=== PATIENT | female | born 1950 | race Hispanic/Latino ===

== ENCOUNTER 2020-07-31 14:28 | Inpatient (IN) | payer OTHER, MEDICARE ==
[~2020-07-31] VITALS: Ht 170.2 cm; Wt 72.6 kg
[2020-07-31 14:50] LABS: BASOPHILS % (AUTO) 0.1 % (0.0-5.0); EOSINOPHILS % (AUTO) 0.1 % (0.0-8.0); HEMATOCRIT 32.7 % (36-48); LYMPHOCYTES % (AUTO) 4.9 % (21.0-51.0); MEAN CORPUSCULAR HEMOGLOBIN 27.5 pg (27.0-33.0); MEAN CORPUSCULAR HGB CONC 33.3 g/dL (32.0-36.0); MEAN CORPUSCULAR VOLUME 82.6 fL (79-99); MONOCYTES % (AUTO) 3.5 % (3.0-13.0); NEUTROPHILS % (AUTO) 90.7 % (40.0-77.0); PLATELET COUNT (AUTO) 139 K/uL (130-400); RED BLOOD CELL COUNT(AUTO) 3.96 MIL/uL (4.00-5.50); RED CELL DISTRIBUTION WIDTH 14.3 % (11.0-15.5); WHITE BLOOD COUNT (AUTO) 13.8 K/uL (4.8-10.8)
[2020-07-31 15:03] LABS: INR 1.2 (0.85-1.15); PROTHROMBIN TIME 12.9 SEC (9.6-11.6)
[2020-07-31 15:04] LABS: PARTIAL THROMBOPLASTIN TIME 28.9 SEC (26.3-35.5)
[2020-07-31 15:05] LABS: CREATININE 0.8 mg/dL (0.5-1.5); POTASSIUM 3.8 mmol/L (3.5-5.1)
[2020-07-31 15:28] LABS: ALBUMIN 1.9 g/dL (3.5-5.0); BILIRUBIN,TOTAL 1.1 mg/dL (0.2-1.0); TOTAL PROTEIN, SERUM 6.8 g/dL (6.0-8.3)
[2020-07-31 15:29] LABS: TROPONIN I 0.86 ng/mL (0.00-0.06)
[2020-07-31] MEDS ORDERED: 0.9% NACL 250ML 250 ML IV ONE (15:29)
[2020-07-31] MEDS ORDERED: AZITHROMYCIN 500MG+NS 250ML 250 ML IV ONE (15:30)
[2020-07-31] MEDS ORDERED: DEXAMETHASONE SOD PHOSPHATE 10MG/ML 1ML VIAL ONE (15:30)
[2020-07-31] MEDS ORDERED: CEFTRIAXONE 2GM VIAL ONE (15:30)
[2020-07-31 15:35] LABS: APPEARANCE,URINE Clear (CLEAR); BILIRUBIN,URINE Negative (NEGATIVE); COLOR,URINE Dark Yellow (YELLOW); GLUCOSE, URINE (UA) >=1000 mg/dL (NEGATIVE); KETONES,URINE >=160 mg/dL (NEGATIVE); LEUKOCYTE ESTERASE ,URINE Negative (NEGATIVE); NITRATE,URINE Negative (NEGATIVE); OCCULT BLOOD,URINE Negative (NEGATIVE); PH,URINE 5.5 (5.0-8.0); PROTEIN,URINE POS 2+ mg/dL (NEGATIVE)
[2020-07-31 16:03] LABS: BACTERIA,URINE Rare /HPF (None Seen); MUCUS,URINE Rare LPF (None Seen); RBC,URINE 0-1 /HPF (0-1); SQUAMOUS EPITHELIAL CELL,UR Few /HPF (0-2); WBC,URINE 0-1 /HPF (0-1)
[2020-07-31 16:08] LABS: ABG BASE EXCESS -3.5 mmol/L (-2.0-3.0); ABG HCO3 18.4 mmol/L (21.0-28.0); ABG OXYGEN SATURATION 97.4 % (95.0-99.0); ABG PCO2 26 mmHg (32-45)
[2020-07-31] MEDS: CEFEPIME HCL 2 GM VIAL IVP SCH ×2 (16:30→23:25)
[2020-07-31] MEDS: DOXYCYCLINE 100MG+NS 250ML 250 ML IV SCH (16:30)
[2020-07-31] MEDS ORDERED: ASPIRIN 81MG CHEW TAB PO SCH (16:30)
[2020-07-31] MEDS ORDERED: VANCOMYCIN PROTOCOL PER PHARMACY IV SCH (16:30)
[2020-07-31] MEDS ORDERED: INSULIN HUMULIN R 100 UNIT/ML 3ML SQ SCH (16:30)
[2020-07-31 16:41] LABS: HEMOGLOBIN A1C 9.4 % (4.0-6.0)
[2020-07-31] MEDS ORDERED: THIAMINE HCL 100 MG/ML 2ML VIAL IVP SCH (16:45)
[2020-07-31] MEDS ORDERED: FOLIC ACID 5 MG/ML VIAL IV SCH (16:45)
[2020-07-31] MEDS ORDERED: CEFEPIME HCL 2 GM VIAL ONE (17:09)
[2020-07-31] MEDS ORDERED: DOXYCYCLINE 100MG+NS 250ML 250 ML IV ONE (17:10)
[2020-07-31] MEDS ORDERED: THIAMINE HCL 100 MG/ML 2ML VIAL ONE (17:47)
[2020-07-31] MEDS ORDERED: FOLIC ACID 5 MG/ML VIAL ONE (17:49)
[2020-07-31] MEDS: VANCOMYCIN 1G/250ML KIT 250 ML IV SCH (18:00)
[2020-07-31] MEDS ORDERED: PHARMACY COMMUNICATION**REMDESIVIR ORDER MISC SCH (19:15)
[2020-07-31 19:34] LABS: TROPONIN I 1.17 ng/mL (0.00-0.06)
[2020-07-31] MEDS ORDERED: COMPOUND IV REFRIGERATED 1 EACH IVSOLN MISC PRN (19:45)
[2020-07-31] MEDS ORDERED: REMDESIVIR (EUA) 520 200 MG in 0.9% NACL 250ML 250 ML IV SCH (20:00)
[2020-07-31 20:20] VITALS: BP 156/66
[2020-07-31] MEDS: FAMOTIDINE 20MG VIAL IV SCH (23:25)
[2020-07-31] MEDS: ENOXAPARIN SODIUM 40 MG/0.4 ML SYRINGE SQ SCH (23:28)
[2020-07-31] MEDS: INSULIN HUMULIN R 100 UNIT/ML 3ML SQ SCH (23:40)
[2020-07-31 23:55] VITALS: BP 140/79
[2020-08-01 04:01] VITALS: BP 143/81
[2020-08-01 05:11] LABS: MAGNESIUM 1.6 mg/dL (1.80-2.40)
[2020-08-01] MEDS: DOXYCYCLINE 100MG+NS 250ML 250 ML IV SCH ×2 (05:20→15:31)
[2020-08-01] MEDS ORDERED: MAGNESIUM 2GM PREMIX 50ML 50 ML IV SCH (05:30)
[2020-08-01 05:39] LABS: CRP QUANTITATIVE 289.7 mg/L (0.00-9.0)
[2020-08-01 05:40] LABS: BASOPHILS % (AUTO) 0.1 % (0.0-5.0); HEMATOCRIT 32.9 % (36-48); LYMPHOCYTES % (AUTO) 5.7 % (21.0-51.0); MEAN CORPUSCULAR HEMOGLOBIN 27.2 pg (27.0-33.0); MEAN CORPUSCULAR HGB CONC 33.1 g/dL (32.0-36.0); MONOCYTES % (AUTO) 3.7 % (3.0-13.0); NEUTROPHILS % (AUTO) 89.8 % (40.0-77.0); PLATELET COUNT (AUTO) 119 K/uL (130-400); RED BLOOD CELL COUNT(AUTO) 4.01 MIL/uL (4.00-5.50); RED CELL DISTRIBUTION WIDTH 14.4 % (11.0-15.5); WHITE BLOOD COUNT (AUTO) 10.5 K/uL (4.8-10.8)
[2020-08-01] MEDS ORDERED: DILT120C92 PO (05:55)
[2020-08-01] MEDS ORDERED: CIDE500T PO (05:55)
[2020-08-01] MEDS ORDERED: ATOR10 PO (05:55)
[2020-08-01] MEDS ORDERED: FOLI0.8C PO (05:55)
[2020-08-01] MEDS ORDERED: AEC81 PO (05:55)
[2020-08-01] MEDS ORDERED: DAPA5TAB PO (05:55)
[2020-08-01] MEDS ORDERED: LINA1TAB5 PO (05:55)
[2020-08-01] MEDS: REMDESIVIR LABS MISC SCH (06:00)
[2020-08-01] MEDS: INSULIN HUMULIN R 100 UNIT/ML 3ML SQ SCH ×4 (06:07→21:40)
[2020-08-01 06:17] LABS: ALBUMIN 1.7 g/dL (3.5-5.0); BILIRUBIN,TOTAL 0.6 mg/dL (0.2-1.0); CREATININE 0.8 mg/dL (0.5-1.5); POTASSIUM 3.8 mmol/L (3.5-5.1); TOTAL PROTEIN, SERUM 6.4 g/dL (6.0-8.3)
[2020-08-01] MEDS: VANCOMYCIN 1G/250ML KIT 250 ML IV SCH ×2 (08:13→21:12)
[2020-08-01 08:15] VITALS: BP 145/74
[2020-08-01] MEDS: CEFEPIME HCL 2 GM VIAL IVP SCH ×3 (08:15→23:57)
[2020-08-01] MEDS: FAMOTIDINE 20MG VIAL IV SCH ×2 (08:15→21:12)
[2020-08-01] MEDS: DEXAMETHASONE SOD PHOSPHATE 4 MG/ML 1ML VIAL IVP SCH (08:16)
[2020-08-01] MEDS: THIAMINE HCL 100 MG/ML 2ML VIAL IVP SCH (08:18)
[2020-08-01] MEDS: ASPIRIN 81MG CHEW TAB PO SCH (08:19)
[2020-08-01] MEDS: ENOXAPARIN SODIUM 40 MG/0.4 ML SYRINGE SQ SCH ×2 (08:19→21:13)
[2020-08-01] MEDS: BARICITINIB (EUA) 2 MG TABLET PO SCH (10:07)
[2020-08-01] MEDS: FOLIC ACID 5 MG/ML VIAL IV SCH (10:17)
[2020-08-01] MEDS ORDERED: MAGNESIUM 2GM PREMIX 50ML 50 ML IV PRN (10:30)
[2020-08-01 12:26] VITALS: BP 137/70
[2020-08-01 16:14] VITALS: BP 142/73
[2020-08-01] MEDS: REMDESIVIR (EUA) 520 100 MG in 0.9% NACL 250ML 250 ML IV SCH (19:42)
[2020-08-01 20:12] VITALS: BP 144/77
[2020-08-01] MEDS: INSULIN GLARGINE 100 UNITS/ML 10 ML VIAL SQ SCH (21:39)
[2020-08-01 23:54] VITALS: BP 170/86
[2020-08-02 04:14] VITALS: BP 161/77
[2020-08-02] MEDS ORDERED: GUAIFENESIN-CODEINE 5 ML SYRUP PO PRN (04:45)
[2020-08-02] MEDS: DOXYCYCLINE 100MG+NS 250ML 250 ML IV SCH ×2 (05:03→16:14)
[2020-08-02 05:04] LABS: BASOPHILS % (AUTO) 0.1 % (0.0-5.0); HEMATOCRIT 36.5 % (36-48); LYMPHOCYTES % (AUTO) 5.4 % (21.0-51.0); MEAN CORPUSCULAR HEMOGLOBIN 26.9 pg (27.0-33.0); MEAN CORPUSCULAR HGB CONC 32.9 g/dL (32.0-36.0); MEAN CORPUSCULAR VOLUME 81.8 fL (79-99); MONOCYTES % (AUTO) 2.8 % (3.0-13.0); NEUTROPHILS % (AUTO) 90.7 % (40.0-77.0); PLATELET COUNT (AUTO) 190 K/uL (130-400); RED BLOOD CELL COUNT(AUTO) 4.46 MIL/uL (4.00-5.50); RED CELL DISTRIBUTION WIDTH 14.6 % (11.0-15.5); WHITE BLOOD COUNT (AUTO) 18.4 K/uL (4.8-10.8)
[2020-08-02 05:43] LABS: BILIRUBIN,TOTAL 0.7 mg/dL (0.2-1.0); CREATININE 0.8 mg/dL (0.5-1.5); CRP QUANTITATIVE 164.3 mg/L (0.00-9.0); POTASSIUM 3.6 mmol/L (3.5-5.1); TOTAL PROTEIN, SERUM 7.2 g/dL (6.0-8.3)
[2020-08-02 08:00] VITALS: BP 162/72
[2020-08-02] MEDS: INSULIN HUMULIN R 100 UNIT/ML 3ML SQ SCH ×4 (08:00→22:45)
[2020-08-02] MEDS: VANCOMYCIN 1G/250ML KIT 250 ML IV SCH ×2 (08:59→22:33)
[2020-08-02] MEDS: FOLIC ACID 5 MG/ML VIAL IV SCH (09:00)
[2020-08-02] MEDS: ENOXAPARIN SODIUM 40 MG/0.4 ML SYRINGE SQ SCH (09:00)
[2020-08-02] MEDS: DEXAMETHASONE SOD PHOSPHATE 4 MG/ML 1ML VIAL IVP SCH (09:00)
[2020-08-02] MEDS ORDERED: COMPOUND IV REFRIGERATED 1 EACH IVSOLN MISC PRN (09:00)
[2020-08-02] MEDS ORDERED: ASPIRIN 81 MG EC TAB PO SCH (09:00)
[2020-08-02] MEDS: BARICITINIB (EUA) 2 MG TABLET PO SCH (09:00)
[2020-08-02] MEDS: THIAMINE HCL 100 MG/ML 2ML VIAL IVP SCH (09:00)
[2020-08-02] MEDS: FAMOTIDINE 20MG VIAL IV SCH ×2 (09:01→22:29)
[2020-08-02] MEDS: DILTIAZEM 120MG SR CAP PO SCH (09:01)
[2020-08-02] MEDS: CEFEPIME HCL 2 GM VIAL IVP SCH ×3 (09:01→22:34)
[2020-08-02] MEDS: ASPIRIN 81MG CHEW TAB PO SCH (09:01)
[2020-08-02 12:00] VITALS: BP 137/70
[2020-08-02 16:00] VITALS: BP 116/72
[2020-08-02] MEDS: REMDESIVIR (EUA) 520 100 MG in 0.9% NACL 250ML 250 ML IV SCH (20:51)
[2020-08-02 20:55] VITALS: BP 140/70
[2020-08-02] MEDS: ENOXAPARIN SODIUM 80 MG/0.8 ML SQ SCH (22:33)
[2020-08-02] MEDS: INSULIN GLARGINE 100 UNITS/ML 10 ML VIAL SQ SCH (22:45)
[2020-08-02 23:49] VITALS: BP 141/80
[2020-08-03] VITALS (30 sets, daily range): BP systolic 28–160; BP diastolic 23–80
[2020-08-03] MEDS: NITROGLYCERIN 1GM OINT 1 INCH/1GM TD SCH ×3 (00:13→16:56)
[2020-08-03 01:22] LABS: TROPONIN I 0.53 ng/mL (0.00-0.06)
[2020-08-03] MEDS: DOXYCYCLINE 100MG+NS 250ML 250 ML IV SCH ×2 (04:30→16:56)
[2020-08-03] MEDS: INSULIN HUMULIN R 100 UNIT/ML 3ML SQ SCH ×4 (04:30→21:47)
[2020-08-03 04:58] LABS: BASOPHILS % (AUTO) 0.1 % (0.0-5.0); HEMATOCRIT 37.9 % (36-48); MEAN CORPUSCULAR HEMOGLOBIN 26.8 pg (27.0-33.0); MEAN CORPUSCULAR HGB CONC 32.2 g/dL (32.0-36.0); MEAN CORPUSCULAR VOLUME 83.3 fL (79-99); MONOCYTES % (AUTO) 2.9 % (3.0-13.0); NEUTROPHILS % (AUTO) 90.7 % (40.0-77.0); PLATELET COUNT (AUTO) 163 K/uL (130-400); RED BLOOD CELL COUNT(AUTO) 4.55 MIL/uL (4.00-5.50); WHITE BLOOD COUNT (AUTO) 17.8 K/uL (4.8-10.8)
[2020-08-03 05:15] LABS: ALBUMIN 1.8 g/dL (3.5-5.0); BILIRUBIN,TOTAL 0.9 mg/dL (0.2-1.0); CREATININE 0.7 mg/dL (0.5-1.5); POTASSIUM 3.5 mmol/L (3.5-5.1); TOTAL PROTEIN, SERUM 6.5 g/dL (6.0-8.3)
[2020-08-03] MEDS: REMDESIVIR LABS MISC SCH (06:00)
[2020-08-03] MEDS ORDERED: LORAZEPAM 2 MG/ML 1 ML VIAL IVP SCH ×2 (07:04→08:45)
[2020-08-03] MEDS: CEFEPIME HCL 2 GM VIAL IVP SCH ×2 (08:30→16:56)
[2020-08-03 08:41] LABS: TROPONIN I 4.48 ng/mL (0.00-0.06)
[2020-08-03] MEDS ORDERED: DEXMEDETOMIDINE HCL 400 MCG in 0.9%NACL 100ML 100 ML IV SCH (08:45)
[2020-08-03] MEDS ORDERED: OLANZAPINE 10MG/ML 1ML VIAL IM SCH ×2 (08:45→09:44)
[2020-08-03] MEDS ORDERED: VANCOMYCIN 1G 2 GM in 0.9% NACL 500ML IV.SOLN 500 ML IV SCH (09:00)
[2020-08-03] MEDS: DILTIAZEM 120MG SR CAP PO SCH (09:00)
[2020-08-03] MEDS ORDERED: CLOPIDOGREL 300MG TAB PO SCH ×2 (09:00→13:45)
[2020-08-03] MEDS: BARICITINIB (EUA) 2 MG TABLET PO SCH (09:00)
[2020-08-03] MEDS: DEXAMETHASONE SOD PHOSPHATE 4 MG/ML 1ML VIAL IVP SCH (09:00)
[2020-08-03] MEDS: ENOXAPARIN SODIUM 80 MG/0.8 ML SQ SCH ×2 (09:00→21:58)
[2020-08-03] MEDS: THIAMINE HCL 100 MG/ML 2ML VIAL IVP SCH (09:00)
[2020-08-03] MEDS: ASPIRIN 81MG CHEW TAB PO SCH (09:00)
[2020-08-03] MEDS: FAMOTIDINE 20MG VIAL IV SCH ×2 (09:00→21:58)
[2020-08-03] MEDS ORDERED: FENTANYL 2500MCG+NS 250ML 0 ML IV ONE (09:16)
[2020-08-03] MEDS ORDERED: ALTEPLASE 100MG 1 VIAL IV PRN (09:30)
[2020-08-03] MEDS ORDERED: MIDAZOLAM HCL 50 MG in 0.9%NACL 50ML 50 ML IV SCH (09:45)
[2020-08-03] MEDS ORDERED: MIDAZOLAM 100MG-0.9% NS 100ML 100 ML IV SCH (10:00)
[2020-08-03] MEDS ORDERED: FENTANYL 2500MCG+NS 250ML 250 ML IV ONE (10:01)
[2020-08-03] MEDS ORDERED: NOREPINEPHRIN 4MG/NS 250ML 250 ML IV SCH (11:45)
[2020-08-03 11:59] LABS: ABG BASE EXCESS -22.4 mmol/L (-2.0-3.0); ABG OXYGEN SATURATION 78.8 % (95.0-99.0); ABG PCO2 42 mmHg (32-45)
[2020-08-03] MEDS ORDERED: SODIUM BICARB 50MEQ 50ML VIAL 100 ML ONE ×2 (12:01→16:54)
[2020-08-03] MEDS ORDERED: SODIUM BICARB 50MEQ 50ML VIAL IV SCH (12:03)
[2020-08-03] MEDS ORDERED: PHARMACY COMMUNICATION MISC SCH ×3 (12:03→13:30)
[2020-08-03] MEDS ORDERED: CEFAZOLIN SODIUM 1 GM VIAL IVP SCH (12:15)
[2020-08-03 12:17] LABS: BILIRUBIN,TOTAL 1.1 mg/dL (0.2-1.0); CREATININE 1.2 mg/dL (0.5-1.5); POTASSIUM 4.4 mmol/L (3.5-5.1); TOTAL PROTEIN, SERUM 6.8 g/dL (6.0-8.3)
[2020-08-03] MEDS: PHENYLEPHRINE HCL 100 MG in 0.9% NACL 250ML 250 ML IV SCH ×3 (12:30→21:02)
[2020-08-03] MEDS: VASOPRESSIN 40 UNITS in 0.9%NACL 50ML 40 ML IV SCH ×2 (12:30→23:40)
[2020-08-03] MEDS: NOREPINEPHRIN 8MG/250ML NS PMX 250 ML IV NR ×2 (13:00→16:00)
[2020-08-03] MEDS: SODIUM BICARB 8.4% 50ML SYRING 150 MEQ in WATER FOR INJECTION,STERILE 1,000 ML IV SCH (13:30)
[2020-08-03] MEDS: FOLIC ACID 5 MG/ML VIAL IV SCH (13:34)
[2020-08-03] MEDS: CEFAZOLIN MISC SCH ×2 (14:30→18:30)
[2020-08-03] MEDS: CEFEPIME MISC SCH ×2 (14:30→18:30)
[2020-08-03 16:49] LABS: ABG HCO3 10.5 mmol/L (21.0-28.0); ABG PCO2 63 mmHg (32-45)
[2020-08-03] MEDS ORDERED: SODIUM BICARB 50MEQ 50ML VIAL IV STA (16:55)
[2020-08-03 16:57] LABS: TROPONIN I 57.75 ng/mL (0.00-0.06)
[2020-08-03] MEDS: NOREPINEPHRINE BITARTRATE 32 MG in 0.9% NACL 250ML 250 ML IV SCH (18:46)
[2020-08-03] MEDS ORDERED: SODIUM BICARB 50MEQ 50ML VIAL 50 ML ONE (18:59)
[2020-08-03] MEDS ORDERED: SODIUM BICARB 50MEQ 50ML VIAL IV ONE (19:30)
[2020-08-03] MEDS: REMDESIVIR (EUA) 520 100 MG in 0.9% NACL 250ML 250 ML IV SCH (20:25)
[2020-08-03] MEDS: EPINEPHRINE PF 1MG AMP 10 MG in 0.9% NACL 250ML 250 ML IV SCH ×2 (21:00→23:42)
[2020-08-03] MEDS ORDERED: ATORVASTATIN 20 MG TABLET PO SCH (21:00)
[2020-08-03] MEDS: VANCOMYCIN 1G/250ML KIT 250 ML IV SCH (22:00)
[2020-08-03] MEDS: INSULIN GLARGINE 100 UNITS/ML 10 ML VIAL SQ SCH (22:05)
[2020-08-04] VITALS (25 sets, daily range): BP systolic 16–110; BP diastolic 14–40
[2020-08-04] MEDS: CEFEPIME HCL 2 GM VIAL IVP SCH ×3 (00:35→16:52)
[2020-08-04] MEDS: NOREPINEPHRINE BITARTRATE 32 MG in 0.9% NACL 250ML 250 ML IV SCH ×4 (01:56→19:05)
[2020-08-04] MEDS: PHENYLEPHRINE HCL 100 MG in 0.9% NACL 250ML 250 ML IV SCH ×3 (01:56→19:07)
[2020-08-04] MEDS: EPINEPHRINE PF 1MG AMP 10 MG in 0.9% NACL 250ML 250 ML IV SCH ×6 (01:57→17:00)
[2020-08-04] MEDS: SODIUM BICARB 8.4% 50ML SYRING 150 MEQ in WATER FOR INJECTION,STERILE 1,000 ML IV SCH ×2 (04:29→20:16)
[2020-08-04] MEDS: INSULIN HUMULIN R 100 UNIT/ML 3ML SQ SCH ×3 (04:30→15:52)
[2020-08-04] MEDS: DOXYCYCLINE 100MG+NS 250ML 250 ML IV SCH ×2 (04:35→16:52)
[2020-08-04 04:43] LABS: BASOPHILS % (AUTO) 0.3 % (0.0-5.0); EOSINOPHILS % (AUTO) 0.2 % (0.0-8.0); HEMATOCRIT 36.4 % (36-48); LYMPHOCYTES % (AUTO) 6.4 % (21.0-51.0); MEAN CORPUSCULAR HEMOGLOBIN 27.4 pg (27.0-33.0); MEAN CORPUSCULAR HGB CONC 28.8 g/dL (32.0-36.0); MONOCYTES % (AUTO) 3.2 % (3.0-13.0); NEUTROPHILS % (AUTO) 87.1 % (40.0-77.0); NUCLEATED RED BLOOD CELLS 0.1 % (0.0-0.19); PLATELET COUNT (AUTO) 136 K/uL (130-400); RED BLOOD CELL COUNT(AUTO) 3.83 MIL/uL (4.00-5.50); RED CELL DISTRIBUTION WIDTH 16.9 % (11.0-15.5); WHITE BLOOD COUNT (AUTO) 29.4 K/uL (4.8-10.8)
[2020-08-04 05:05] LABS: ALBUMIN 1.3 g/dL (3.5-5.0); BILIRUBIN,TOTAL 0.8 mg/dL (0.2-1.0); CREATININE 2.3 mg/dL (0.5-1.5); POTASSIUM 4.4 mmol/L (3.5-5.1); TOTAL PROTEIN, SERUM 4.7 g/dL (6.0-8.3)
[2020-08-04] MEDS ORDERED: DEXTROSE 50%-WATER 50 ML DISP.SYRIN IV ONE (06:11)
[2020-08-04] MEDS ORDERED: GLUCAGON 1MG KIT 1 MG ML IM PRN ×2 (06:15→10:15)
[2020-08-04] MEDS: REMDESIVIR LABS MISC SCH (06:28)
[2020-08-04] MEDS: NITROGLYCERIN 1GM OINT 1 INCH/1GM TD SCH ×3 (08:00→16:00)
[2020-08-04] MEDS: VANCOMYCIN 1G/250ML KIT 250 ML IV SCH (08:25)
[2020-08-04] MEDS: DEXAMETHASONE SOD PHOSPHATE 4 MG/ML 1ML VIAL IVP SCH (08:26)
[2020-08-04] MEDS: FAMOTIDINE 20MG VIAL IV SCH (08:26)
[2020-08-04] MEDS: THIAMINE HCL 100 MG/ML 2ML VIAL IVP SCH (08:26)
[2020-08-04] MEDS: FOLIC ACID 5 MG/ML VIAL IV SCH (08:27)
[2020-08-04] MEDS ORDERED: CLOPIDOGREL 75MG TAB PO SCH (09:00)
[2020-08-04] MEDS: ENOXAPARIN SODIUM 80 MG/0.8 ML SQ SCH (09:00)
[2020-08-04] MEDS: BARICITINIB (EUA) 2 MG TABLET PO SCH (09:49)
[2020-08-04] MEDS: ASPIRIN 81MG CHEW TAB PO SCH (09:49)
[2020-08-04] MEDS ORDERED: DEXTROSE 50%-WATER 50 ML DISP.SYRIN IV PRN (10:15)
[2020-08-04] MEDS: DEXTROSE 50%-WATER 50 ML DISP.SYRIN IV PRN ×2 (10:16→15:20)
[2020-08-04 10:47] LABS: ABG BASE EXCESS -23.5 mmol/L (-2.0-3.0); ABG HCO3 8.6 mmol/L (21.0-28.0); ABG OXYGEN SATURATION 82.5 % (95.0-99.0); ABG PCO2 46 mmHg (32-45)
[2020-08-04] MEDS: VASOPRESSIN 40 UNITS in 0.9%NACL 50ML 40 ML IV SCH (15:56)
[2020-08-04] MEDS ORDERED: AMIODARONE 150MG VIAL 150 MG in DEXTROSE 5%-WATER 100 ML IV STA (17:45)
[2020-08-04] MEDS ORDERED: 0.9% NACL 500ML IV.SOLN 500 ML IV ONE (17:49)
[2020-08-04] MEDS ORDERED: AMIODARONE 900MG VIAL 360 MG in DEXTROSE 5%-WATER 200 ML IV SCH ×2 (19:30→19:45)
[2020-08-04] MEDS ORDERED: 0.9%NACL 1000ML 1,000 ML IV ONE (20:27)
[2020-08-05] MEDS ORDERED: AMIODARONE 900MG VIAL 450 MG in DEXTROSE 5%-WATER 250 ML IV SCH (01:30)
== END 2020-08-04 20:53 | disposition expired | DRG 871 ==
LOC: EDH 14:28 → EDHIP 16:19 → 2AH 20:28 → 2CV 08-03 11:13
PROVIDERS: ADMIT Internal Medicine; ATTEND Internal Medicine
PROC: XW033E5 Introduction of Remdesivir Anti-infective into Peripheral Vein, Percutaneous Approach, New Technology Group 5 (ICD-10-PCS; 2020-07-31)
PROC: 5A0935A Assistance with Respiratory Ventilation, Less than 24 Consecutive Hours, High Flow/Velocity Cannula (ICD-10-PCS; 2020-08-02)
PROC: 5A1945Z Respiratory Ventilation, 24-96 Consecutive Hours (ICD-10-PCS; principal; 2020-08-03)
PROC: 0BH17EZ Insertion of Endotracheal Airway into Trachea, Via Natural or Artificial Opening (ICD-10-PCS; 2020-08-03)
PROC: 5A0935A Assistance with Respiratory Ventilation, Less than 24 Consecutive Hours, High Flow/Velocity Cannula (ICD-10-PCS; 2020-08-03)
PROC: 04HY32Z Insertion of Monitoring Device into Lower Artery, Percutaneous Approach (ICD-10-PCS; 2020-08-03)
PROC: 02H633Z Insertion of Infusion Device into Right Atrium, Percutaneous Approach (ICD-10-PCS; 2020-08-03)
PROC: 3E03317 Introduction of Other Thrombolytic into Peripheral Vein, Percutaneous Approach (ICD-10-PCS; 2020-08-03)
PROC: 5A12012 Performance of Cardiac Output, Single, Manual (ICD-10-PCS; 2020-08-04)
DX: A41.89 Other specified sepsis (principal); I21.A1 Myocardial infarction type 2; G92 Toxic encephalopathy; U07.1 COVID-19; J12.82 Pneumonia due to coronavirus disease 2019; J80 Acute respiratory distress syndrome; R65.21 Severe sepsis with septic shock; I21.09 ST elevation (STEMI) myocardial infarction involving other coronary artery of anterior wall; E87.4 Mixed disorder of acid-base balance; E87.1 Hypo-osmolality and hyponatremia; N17.9 Acute kidney failure, unspecified; D68.59 Other primary thrombophilia; R57.0 Cardiogenic shock; E11.65 Type 2 diabetes mellitus with hyperglycemia; E66.9 Obesity, unspecified; E78.5 Hyperlipidemia, unspecified; E78.00 Pure hypercholesterolemia, unspecified; E87.6 Hypokalemia; I10 Essential (primary) hypertension; N81.4 Uterovaginal prolapse, unspecified; Z83.3 Family history of diabetes mellitus; Z68.25 Body mass index [BMI] 25.0-25.9, adult; I46.9 Cardiac arrest, cause unspecified
CPT/HCPCS: 31500; 36415; 36556; 36600; 36620; 70450; 71045; 76856; 80053; 80202; 81001; 82010; 82140; 82435; 82550; 82728; 82803; 82947; 82948; 83036; 83605; 83615; 83735; 83874; 83880; 84100; 84132; 84145; 84295; 84484; 85018; 85025; 85378; 85610; 85730; 86140; 86900; 86901; 87040; 87077; 87088; 87186; 87426; 87804; 92610; 92950; 93005; 93306; 93356; 93970; 94002; 94003; G0378; J0171; J0282; J0456; J0690; J0692; J0696; J1100; J1650; J1815; J2060; J2370; J3010; J3370; J3411; J3475; J3490; J7030; J7040; J7050; J7060; J7070; U0003